=== PATIENT | female | born 1965 | race Caucasian/White ===

== ENCOUNTER 2022-09-08 08:18 | Emergency (ER) | payer BC, SELFPAY ==
[2022-09-08 08:25] VITALS: BP 112/92; PULSE 80; RESP 16; TEMP 36.9; O2SAT 100
--- NOTE | 2022-09-08 08:56 | ED.URI ---
HPI - URI/Sore Throat General Chief Complaint: Upper Respiratory Infection Stated Complaint: SORE THROAT/CONGESITON/TIRED Time Seen by Provider: 09/08/22 08:56 Source: patient and RN notes reviewed Mode of arrival: ambulatory Limitations: no limitations History of Present Illness HPI Narrative: 57 y/o female presented for c/o fatigue, headache, body aches, sinus pressure/congestion, cough, fever/chills. Onset 4 days. Known exposure to influenza last week. Taking Advil and Sudafed. Denies sob, wheezing, n/v/d. MD elicited complaint: cough Related Data Home Medications Medication Instructions Recorded Confirmed levothyroxine 50 mcg tablet 50 mcg PO DAILY 09/08/22 09/08/22 pantoprazole 40 mg tablet,delayed 40 mg PO DAILY 09/08/22 09/08/22 release progesterone micronized 100 mg 100 mg PO DAILY 09/08/22 09/08/22 capsule valacyclovir 500 mg tablet 500 mg PO DIRECTED 09/08/22 09/08/22 Allergies Allergy/AdvReac Type Severity Reaction Status Date / Time ciprofloxacin Allergy Mild Rash Verified 09/08/22 08:26 Sulfa (Sulfonamide Allergy Mild Hives Verified 09/08/22 08:26 Antibiotics) azithromycin Allergy Unknown Hives Verified 09/08/22 08:26 CIPROFLOXACIN HCL Allergy Mild Rash Uncoded 09/08/22 08:26 Review of Systems Review of Systems: ROS per HPI Exam Narrative: GENERAL: Ill-appearing, nontoxic EYES: PERRLA, conjunctivae clear ENT: Mucous membranes moist. TMs pearly hoang with dull light reflex bilaterally; no tragal tenderness. Oropharynx erythematous without lesions or exudate, no drooling, no hoarseness, no trismus, uvula midline. CHEST: Clear to auscultation, breath sounds equal. No wheezing, rhonchi, rales, or stridor. No respiratory distress, speaks in full sentences. HEART: Regular rate and rhythm. No murmur heard. SKIN: Warm, dry, no rash. NEURO: Alert and oriented x3. PSYCH: Normal mood and affect Course Course Emergency Course: Patient is aware of diagnosis, understands and agrees to treatment plan. Anticipatory guidance given. Patient agrees to follow-up as directed and is aware of reasons to seek care at the emergency department. Portions of this record may have been created with voice recognition software Level of Care: Express Care Visit Vital Signs Vital signs: Vital Signs Temperature 98.4 F 09/08/22 08:25 Pulse Rate 80 09/08/22 08:25 Respiratory Rate 16 09/08/22 08:25 Blood Pressure 112/92 H 09/08/22 08:25 Pulse Oximetry 100 09/08/22 08:25 Oxygen Delivery Room Air 09/08/22 08:25 Temperature 98.4 F 09/08/22 08:25 Pulse Rate 80 09/08/22 08:25 Respiratory Rate 16 09/08/22 08:25 Blood Pressure 112/92 H 09/08/22 08:25 Pulse Oximetry 100 09/08/22 08:25 Oxygen Delivery Room Air 09/08/22 08:25 reviewed MDM - URI/Sore Throat MDM Narrative Medical decision making narrative: Influenza positive. Results reviewed with patient. Advised supportive measures and signs/symptoms to go to the ER. Pt is appropriate for outpt treatment and f/u. Differential Diagnosis Differential diagnosis: Likely upper respiratory infection, sinusitis and viral infection Lab Data Labs: Influenza A Screen Positive Reference Range: Negative Influenza B Screen Negative Reference Range: Negative Discharge Plan Discharge Clinical Impression: Influenza Patient Disposition: Home, Self-Care Condition: Stable Instructions: Influenza (ED) Additional Instructions: Influenza positive You should avoid crowds until you are fever free for 24 hours without the use of fever reducing medications, or the symptoms are improved Rest. Drink plenty of fluids. Tylenol 1000mg every 8 hours as needed for pain/fever Recommend Flonase spray and Zyrtec (or Claritin/Katina) for sinus pressure/congestion over the counter Cough syrup may cause drowsin
== END 2022-09-08 09:32 | disposition home or self-care (01) ==
PROVIDERS: Emergency Provider Nurse Practitioner Family
DX: J10.1 Influenza due to other identified influenza virus with other respiratory manifestations (principal)
CPT/HCPCS: 87804; 99203; G0463

== ENCOUNTER 2023-03-30 14:56 | Emergency (ER) | payer BC, SELFPAY ==
[2023-03-30 15:07] VITALS: BP 110/75; PULSE 72; RESP 18; TEMP 36.7; O2SAT 100
--- NOTE | 2023-03-30 15:27 | ED.URI ---
HPI - URI/Sore Throat General Chief Complaint: Upper Respiratory Infection Stated Complaint: sorethroat Time Seen by Provider: 03/30/23 15:13 Source: patient and RN notes reviewed Mode of arrival: ambulatory Limitations: no limitations History of Present Illness HPI Narrative: Patient presents today complaining of 2 day history of sore throat, body aches, congestion, rhinorrhea, fatigue. Denies fever or cough. Currently rates her sore throat 5/10 and has been taking ibuprofen and Sudafed with mild relief. Denies known sick contacts. Related Data Home Medications Medication Instructions Recorded Confirmed levothyroxine 50 mcg tablet 50 mcg PO DAILY 09/08/22 03/30/23 pantoprazole 40 mg tablet,delayed 40 mg PO DAILY 09/08/22 03/30/23 release progesterone micronized 100 mg 100 mg PO DAILY 09/08/22 03/30/23 capsule Allergies Allergy/AdvReac Type Severity Reaction Status Date / Time azithromycin AdvReac Mild Hives Verified 03/30/23 15:01 ciprofloxacin AdvReac Mild Rash Verified 03/30/23 15:01 Sulfa (Sulfonamide AdvReac Mild Hives Verified 03/30/23 15:01 Antibiotics) Review of Systems Review of Systems: CONSTITUTIONAL: Denies fever, chills, or sweats.+ fatigue, body aches EYES: Denies visual changes, redness, or discharge. ENT: Denies otalgia.+ congestion, rhinorrhea, sore throat CARDIOVASCULAR: Denies chest pain, palpitations, or edema. RESPIRATORY: Denies cough or dyspnea. GASTROINTESTINAL: Denies abdominal pain, nausea, vomiting, or diarrhea. GENITOURINARY: Denies dysuria or hematuria. SKIN: Denies rash, itching, or wounds. MUSCULOSKELETAL: Denies back pain, joint pain, or myalgia. NEUROLOGIC: Denies headache, numbness, tingling, or weakness. PSYCH: Denies depression or anxiety. [facility] Past Medical History Medical History (Updated 03/30/23 @ 15:30 by Chanel Dillard, DRUM TENDER, ) GERD (gastroesophageal reflux disease) Comments At time of signature, I have reviewed and agree with nursing past medical, surgical, social and family history unless otherwise noted. Please see nursing chart for further information. There is no relevant family history pertinent to the presenting complaint Exam Narrative: GENERAL: Well-appearing, well-nourished, and in no acute distress. HEAD: Normocephalic, atraumatic. EYES: EOMI. No redness or drainage. Conjunctivae normal. ENT: Mucous membranes pink and moist. Nares mildly congested. No rhinorrhea. TMs normal bilaterally. Throat normal. Uvula midline. NECK: Normal AROM. Supple. No lymphadenopathy. CHEST: No respiratory distress. Clear to auscultation. HEART: Regular rate and rhythm. No murmur appreciated. Normal peripheral pulses. EXTREMITIES: Normal range of motion. No edema. SKIN: Warm, dry, no rash. Capillary refill normal. Normal skin turgor. NEURO: No focal deficits. Alert and oriented x3. Gait steady. PSYCH: Normal affect. No signs of depression or anxiety. Course Course Level of Care: Express Care Visit Vital Signs Vital signs: Vital Signs Temperature 98.1 F 03/30/23 15:07 Pulse Rate 72 03/30/23 15:07 Respiratory Rate 18 03/30/23 15:07 Blood Pressure 110/75 03/30/23 15:07 Pulse Oximetry 100 03/30/23 15:07 Oxygen Delivery Room Air 03/30/23 15:07 Temperature 98.1 F 03/30/23 15:07 Pulse Rate 72 03/30/23 15:07 Respiratory Rate 18 03/30/23 15:07 Blood Pressure 110/75 03/30/23 15:07 Pulse Oximetry 100 03/30/23 15:07 Oxygen Delivery Room Air 03/30/23 15:07 Reviewed MDM - URI/Sore Throat MDM Narrative Medical decision making narrative: Rapid strep negative. Culture pending. No prescription medications indicated at this time. Symptoms likely viral in etiology. Anticipatory guidance given. Differential Diagnosis Differential diagnosis: Likely upper respiratory infection, viral infection, pharyngitis and other (Strep throat) Lab Data Attestation: I reviewed the patient's lab results. Lab
== END 2023-03-30 15:29 | disposition home or self-care (01) ==
PROVIDERS: Emergency Provider Nurse Practitioner
DX: J06.9 Acute upper respiratory infection, unspecified (principal); K21.9 Gastro-esophageal reflux disease without esophagitis
CPT/HCPCS: 87081; 87880; 99213; G0463

== ENCOUNTER 2024-05-28 11:37 | Emergency (ER) | payer BC, SELFPAY ==
--- NOTE | 2024-05-28 11:45 | ED.URI ---
HPI - URI/Sore Throat General Chief Complaint: Upper Respiratory Infection Stated Complaint: Covid Time Seen by Provider: 05/28/24 12:05 Source: patient and RN notes reviewed Mode of arrival: ambulatory Limitations: no limitations History of Present Illness HPI Narrative: 58-year-old female presents with concern for COVID. Reports she had a positive COVID test at home yesterday. Her symptoms started Tuesday. It got worse yesterday. She reports she has taken Sudafed and ibuprofen MD elicited complaint: cough and sore throat Related Data Home Medications Medication Instructions Recorded Confirmed levothyroxine 50 mcg tablet 50 mcg PO DAILY 09/08/22 05/28/24 progesterone micronized 100 mg 100 mg PO DAILY 09/08/22 05/28/24 capsule estradiol 0.5 mg tablet 0.5 mg PO DAILY 05/28/24 05/28/24 Allergies Allergy/AdvReac Type Severity Reaction Status Date / Time azithromycin AdvReac Mild Hives Verified 05/28/24 11:55 ciprofloxacin AdvReac Mild Rash Verified 05/28/24 11:55 Sulfa (Sulfonamide AdvReac Mild Hives Verified 05/28/24 11:55 Antibiotics) Review of Systems Review of Systems: CONSTITUTIONAL: Reports malaise. Denies chills, sweats, or fever. EYES: Denies visual changes, redness, or discharge. ENT: Reports rhinorrhea, congestion, and sore throat. CARDIOVASCULAR: Denies chest pain, palpitations, or edema. RESPIRATORY: Reports cough. Denies dyspnea. GASTROINTESTINAL: Denies abdominal pain, nausea, vomiting, diarrhea SKIN: Denies rash or itching. MUSCULOSKELETAL: Reports myalgia. NEUROLOGIC: Reports headache. All systems reviewed & are unremarkable except as noted in HPI and below PMFSH Past Medical History Medical History (Updated 05/28/24 @ 12:10 by Shobha Caruso NP) GERD (gastroesophageal reflux disease) Comments At time of signature, agree with nursing past medical, surgical, social and family history. There is no relevant family history pertinent to the presenting complaint Exam Narrative: GENERAL: Well-appearing, well-nourished, and in no acute distress. HEAD: Normocephalic EYES: PERRLA, conjunctivae clear ENT: Nares clear, turbinates edematous and erythematous, clear discharge. Mucous membranes moist. TM pearly hoang with dull light reflex bilaterally; no tragal tenderness. Oropharynx not erythematous without lesions. Tonsils not enlarged and without exudate, no drooling, no hoarseness, no trismus, uvula midline. NECK: Supple. No lymphadenopathy CHEST: Clear to auscultation, breath sounds equal. No wheezing, rhonchi, rales, or stridor. No respiratory distress, speaks in full sentences. HEART: Regular rate and rhythm. No murmur heard. SKIN: Warm, dry, no rash. NEURO: Alert and oriented x3. PSYCH: Normal mood and affect Course Course Emergency Course: Patient is aware of diagnosis, understands and agrees to treatment plan. Anticipatory guidance given. Patient agrees to follow-up as directed and is aware of reasons to seek care at the emergency department. Portions of this record may have been created with voice recognition software Level of Care: Express Care Visit Vital Signs Vital signs: Reviewed. MDM - URI/Sore Throat MDM Narrative Medical decision making narrative: Differential diagnosis considered: Schultz virus, strep pharyngitis, allergic rhinitis, upper respiratory tract infection, sinusitis, rhinosinusitis, nasopharyngitis. viral pharyngitis, otitis media, otitis externa, pneumonia, bronchitis, viral cough syndrome, viral syndrome, and influenza. Exam findings show no acute concerns or changes; patient is non-toxic appearing and is in no distress. Patient is appropriate for outpatient treatment and follow-up. Lab Data Attestation: I reviewed the patient's lab results. Critical Care Time Critical Care Time Critical Care Time: No Discharge Plan Discharge Clinical Impression: COVID Patient Disposition: Home, Self-Care Condition: Stable Instructions: How to
[2024-05-28 11:52] VITALS: BP 106/87; PULSE 86; RESP 20; TEMP 36.4; O2SAT 99
[2024-05-28 11:56] VITALS: BP 106/87; PULSE 86; RESP 20; TEMP 36.4; O2SAT 99
== END 2024-05-28 12:17 | disposition home or self-care (01) ==
PROVIDERS: Emergency Provider Nurse Practitioner
DX: U07.1 COVID-19 (principal); K21.9 Gastro-esophageal reflux disease without esophagitis
CPT/HCPCS: 99213; G0463

== ENCOUNTER 2024-09-10 13:42 | Emergency (ER) | payer BC, SELFPAY ==
--- NOTE | ~2024-09-10 | XR_ITS ---
EXAMINATION: XR chest 2V Exam Date/Time: 09/10/2024 14:06 FELT CEMENTER HISTORY: cough, chest congestion, sob on exertion Comparison: None. RESULT: Lines, tubes, and devices: Cholecystectomy clips. Lungs and pleura: Clear. Cardiomediastinal silhouette: Unremarkable. Other: No acute osseous or upper abdominal finding. IMPRESSION: No acute cardiopulmonary process. Reviewed, dictated and finalized at location K. CEMENTER
--- NOTE | 2024-09-10 13:43 | ED.URI ---
HPI - URI/Sore Throat General Chief Complaint: Upper Respiratory Infection Stated Complaint: Upper Respiratory Symptoms Time Seen by Provider: 09/10/24 13:43 Source: patient Mode of arrival: ambulatory Limitations: no limitations History of Present Illness HPI Narrative: Marisol is a 59-year-old female patient presenting to the clinic today with complaints of cough, chest congestion, and shortness of breath on exertion. She reports she has had symptoms for approximately 5 days. Had COVID back in May. Denies any fevers, chills, or body aches. MD elicited complaint: cough, nasal congestion and other (Chest congestion, shortness of breath) Related Data Home Medications Medication Instructions Recorded Confirmed levothyroxine 50 mcg tablet 50 mcg PO DAILY 09/08/22 09/10/24 progesterone micronized 100 mg 100 mg PO DAILY 09/08/22 09/10/24 capsule estradiol 1 mg tablet 1 mg PO DAILY 09/10/24 09/10/24 Allergies Allergy/AdvReac Type Severity Reaction Status Date / Time azithromycin AdvReac Mild Hives Verified 09/10/24 14:09 ciprofloxacin AdvReac Mild Rash Verified 09/10/24 14:09 Sulfa (Sulfonamide AdvReac Mild Hives Verified 09/10/24 14:09 Antibiotics) Review of Systems Review of Systems: Pertinent positives per HPI. Patient denies any fever, chills, rash, headache, visual changes, dizziness, chest pain, palpitations, nausea, vomiting, diarrhea, constipation, abdominal pain, or any urinary issues. [facility] Past Medical History Medical History (Updated 09/10/24 @ 14:27 by Michael Whitt APRN) GERD (gastroesophageal reflux disease) Comments At the time of my signature, I reviewed and agree with the nursing past medical, surgical, social, and family history. There is no relevant family history pertinent to the patient complaint. Exam Narrative: General: Well-developed, well nourished, in no apparent distress Head: Normocephalic, atraumatic Eyes: Pupils equally round and reactive to light bilaterally, EOM intact, sclera and conjunctive clear, no discharge, lids normal Ears: TMs intact and clear, ear canals clear, no drainage, grossly hearing normal. Nose: Nares patent, clear nasal discharge, no inflammation, no sinus tenderness. Mouth: Oral pharynx without lesions or masses, good dentition, MMM. Postnasal drip Neck: Supple, trachea midline, no enlargement of anterior or posterior cervical nodes, no thyroid masses or goiter palpable. Cardio: Regular rate and rhythm, s1 and s2 normal, no murmur appreciated. Resp: Clear to auscultation bilaterally, no rhonchi, rales, wheezing or rubs Course Course Emergency Course: Portions of this record may have been created with voice recognition software. Level of Care: Express Care Visit Vital Signs Vital signs: Vital Signs Temperature 36.6 C 09/10/24 14:00 Pulse Rate 90 09/10/24 14:00 Respiratory Rate 15 09/10/24 14:00 Blood Pressure 116/87 09/10/24 14:00 Pulse Oximetry 99 09/10/24 14:00 Oxygen Delivery Room Air 09/10/24 14:00 Temperature 36.6 C 09/10/24 14:00 Pulse Rate 90 09/10/24 14:00 Respiratory Rate 15 09/10/24 14:00 Blood Pressure 116/87 09/10/24 14:00 Pulse Oximetry 99 09/10/24 14:00 Oxygen Delivery Room Air 09/10/24 14:00 Vital signs reviewed MDM - URI/Sore Throat MDM Narrative Medical decision making narrative: At the time of visit patient is resting comfortably on the exam table. Patient appears to be nontoxic. Labs: COVID and influenza testing was negative in the clinic today. Diagnostics: Chest x-ray was negative for any acute cardiopulmonary process. Plan: I suspect patient has URI with cough and congestion. Prescription for albuterol inhaler and prednisone was sent to the pharmacy. Supportive measures were discussed with the patient and they voiced understanding discharge instructions and agrees to treatment plan. Return precautions reviewed Differential Diagnosis Differential diagnosis: Likely upper respiratory infection, otitis media, sinusitis, viral infection, bronchitis, influenza, pharyngitis and other (COVID) Imaging Data Radiologist's impression: ITS Impressions Chest X-Ray 09/10/24 14:22 IMPRESSION: No acute cardiopulmonary process. Discharge Plan Discharge Clinical Impression: Upper respiratory infection with cough and congestion Patient Disposition: Home, Self-Care Condition: Stable Instructions: Antibiotic Form, Upper Respiratory Infection (ED) Additional Instructions: COVID and influenza testing was negative in the clinic today. Chest x-rays negative for any acute cardiopulmonary process. Take prescription medications only as prescribed-albuterol inhaler and prednisone Increase fluids and stay well hydrated Tylenol/motrin for pain/fever Flonase and OTC antihistamines as directed Vicks vapor rub to open sinuses Sinus rinses for congestion Cepacol spray, cough drops, throat lozenges, warm tea with honey/lemon, gargle salt water to soothe throat BRAT diet for diarrhea Clear liquids x 24 hours then advance as tolerated for nausea/vomiting Go to the ED if you develop a worsening in your condition- high fever not controlled by Tylenol or Motrin, dehydration, weakness, lethargy, shortness of breath, or chest pain. Follow up with your PCP in 3-5 days if symptoms persist. Prescriptions: New prednisone 20 mg tablet 40 mg PO DAILY 5 Days Qty: 10 0RF albuterol sulfate 90 mcg/actuation HFA aerosol inhaler 2 puff inhalation Q4-6H PRN (Reason: shortness of breath or wheezing) 30 Days Qty: 8.5 0RF No Action levothyroxine 50 mcg tablet 50 mcg PO DAILY progesterone micronized 100 mg capsule 100 mg PO DAILY estradiol 1 mg tablet 1 mg PO DAILY Follow-up/Referrals: UNKNOWN,DOCTOR [Non-Staff] - Time of Disposition: 14:27 Quality NIHSS Nursing Documentation ED NIHSS nursing documentation: reviewed/agree
[2024-09-10 14:00] VITALS: BP 116/87; PULSE 90; RESP 15; TEMP 36.6; O2SAT 99
[2024-09-10 14:37] LABS: EDCOVIDSCREEN Negative (Negative); EDINFLUASCREEN Negative (Negative); EDINFLUBSCREEN Negative (Negative)
== END 2024-09-10 14:30 | disposition home or self-care (01) ==
PROVIDERS: Emergency Provider Nurse Practitioner Family
DX: J06.9 Acute upper respiratory infection, unspecified (principal); Z20.822 Contact with and (suspected) exposure to COVID-19; K21.9 Gastro-esophageal reflux disease without esophagitis; Z86.16 Personal history of COVID-19
CPT/HCPCS: 71046; 87426; 87804; 99213; G0463

== ENCOUNTER 2024-10-23 08:39 | Emergency (ER) | payer BC, SELFPAY ==
--- NOTE | ~2024-10-23 | US_ITS ---
EXAMINATION: US pelvic complete w TV DATE: 10/23/2024 11:43 INDICATION: Lower abdominal pain TECHNIQUE: Multiple transabdominal and endovaginal sonographic images of the pelvis were obtained. COMPARISON: None. FINDINGS: The uterus measures 6.0 x 3.7 x 4.5 cm. The endometrial complex measures 2-3 mm in thickness. The ri ght ovary measures cm. The left bilateral ovaries are not visualized.. There is no free fluid in the pelvis. IMPRESSION: 1. Normal pelvic ultrasound. Reviewed, dictated and finalized at location A. T PROTECTION SUPERINTENDENT
--- NOTE | ~2024-10-23 | CT_ITS ---
EXAMINATION: CT abdomen pelvis w con DATE: 10/23/2024 09:14 INDICATION: Generalized abdominal pain. TECHNIQUE: Computed tomography (CT) of the abdomen and pelvis was performed with 100 mL Omnipaque 350 intravenous contrast. Automated exposure control and iterative reconstruction technique were employe d. The dose-length product was 1039.06 mGy-cm. COMPARISON: None. FINDINGS: The visualized portions of the lung bases demonstrate mild atelectasis. No pleural effusion . The heart size is normal. No pericardial effusion. The liver and spleen are normal. There are calixto es of cholecystectomy. The pancreas, adrenal glands, and kidneys are normal. There is diverticulosis of the colon without evidence of diverticulitis. The appendix is normal. There are no dilated loops o f bowel. The ovarian veins are enlarged, consistent with pelvic venous insufficiency. There are no pa thologically enlarged lymph nodes. There is no free intraperitoneal fluid. There is moderate thoracic spondylosis and severe lumbar spondylosis IMPRESSION: 1. Pelvic venous insufficiency. Reviewed, dictated and finalized at location B. LLOGRAPHIC TECHNICIAN
[2024-10-23 08:47] VITALS: BP 156/111; PULSE 71; RESP 20; TEMP 37.1; O2SAT 100
[2024-10-23 08:59] LABS: Basophils Absolute Auto 0.1 K/mm3 (0.0-0.1); Basophils Percent Auto 0.7 % (0.2-1.2); Eosinophils Absolute Auto 0.4 K/mm3 (0-0.3); Eosinophils Percent Auto 6.1 % (0-4.4); Hematocrit 44.7 % (37.0-47.0); Hemoglobin 15.4 g/dL (12.0-15.0); Immature Granulocyte Absolute 0.01 K/mm3 (0.00-0.031); Immature Granulocyte Percent A 0.1 % (0-0.5); Lymphocytes Absolute Auto 2.06 K/mm3 (0.9-3.2); Lymphocytes Percent Auto 29.9 % (18.3-44.2); Mean Corpuscular HGB Conc 34.5 g/dl (32-36); Mean Corpuscular Hemoglobin 32.1 pg (26-34); Mean Corpuscular Volume 93.1 fl (80-100); Mean Platelet Volume 9.3 fl (7.4-10.4); Monocytes Absolute Auto 0.8 K/mm3 (0.1-0.6); Monocytes Percent Auto 11.8 % (2.6-8.5); Neutrophils Absolute Auto 3.5 K/mm3 (1.3-6.7); Neutrophils Percent Auto 51.4 % (45.5-73.1); Platelet Count Result 231 k/mm3 (150-375); White Blood Count 6.9 K/mm3 (4.5-10.0)
[2024-10-23 09:08] LABS: Alanine Aminotransferase 29 U/L (6-35); Albumin Level 4.5 g/dL (3.5-5.1); Alkaline Phosphatase 70 U/L (38-126); Anion Gap 9 mmol/L (4-12); Aspartate Amino Transferase 29 U/L (14-36); Bilirubin,Total 0.8 mg/dL (0.2-1.3); Blood Urea Nitrogen 12 mg/dL (7-17); Calcium 9.2 mg/dL (8.4-10.2); Carbon Dioxide 24 mmol/L (22-30); Chloride 106 mmol/L (98-107); Estimated CRCL calculation 76 ml/min; Estimated Glomerular Filt Rate > 60; Glucose 92 mg/dL (65-110); Lipase 64 U/L (23-300); Potassium 4.2 mmol/L (3.4-5.0); Sodium 139 mmol/L (137-145)
[2024-10-23 09:11] LABS: Estimated CRCL calculation 72 ml/min; Estimated Glomerular Filt Rate > 60
[2024-10-23 09:19] LABS: Lactic Acid Reflex 1.5 mmol/L (0.7-2.0)
[2024-10-23 09:32] LABS: Add Urine Microscopic? NO; Appearance Urine Clear (Clear); Bilirubin Urine Negative (Negative); Blood Urine Negative (Negative); Color Urine Yellow (Yellow); Glucose Urine UA Negative (Negative); Ketones Urine Negative (Negative); Leukocyte Esterase Ur Negative LEU/UL (Negative); Nitrate Urine Negative (Negative); Protein Urine Negative (Negative); Urobilinogen Urine 0.2 mg/dL (<2.0); pH Urine 5.5 (5.0-9.0)
--- NOTE | 2024-10-23 09:44 | ED.ABDPAIN ---
HPI - Abdominal Pain General Chief Complaint: Abdominal Pain Stated Complaint: abd pain Time Seen by Provider: 10/23/24 09:02 History of Present Illness HPI narrative: 59-year-old female with history of GERD presents to the emergency department with at bedside for abdominal pain. Patient states she has had intermittent abdominal pain to the right lower quadrant since 10/12/2024. Over the past few days the abdominal pain is worsened so she contacted her OBGYN who is planning to schedule an outpatient ultrasound was advised to come to the ED if symptoms worsen in the meantime. Patient presents today because this morning she woke up with significant abdominal pain that radiated from her right lower quadrant across her abdomen and into her back. States pain is worse with movement of her abdomen or when she goes over bumps in the road. She has never had pain like this before. Reports a history of lap choly in 2011, otherwise no abdominal surgeries. Denies dysuria, hematuria, N/V/D, fever. Last bowel movement was this morning and normal. Related Data Home Medications ?Medication ?Instructions ?Recorded ?Confirmed ?Last Taken ?Type levothyroxine 50 mcg tablet 50 mcg PO DAILY 09/08/22 09/10/24 Unknown History progesterone micronized 100 mg 100 mg PO DAILY 09/08/22 09/10/24 Unknown History capsule estradiol 1 mg tablet 1 mg PO DAILY 09/10/24 09/10/24 Unknown History Allergies Allergy/AdvReac Type Severity Reaction Status Date / Time azithromycin AdvReac Mild Hives Verified 10/23/24 08:40 ciprofloxacin AdvReac Mild Rash Verified 10/23/24 08:40 Sulfa (Sulfonamide AdvReac Mild Hives Verified 10/23/24 08:40 Antibiotics) Review of Systems Review of Systems: All systems reviewed & are unremarkable except as noted in HPI and below PMFSH Past Medical History Medical History GERD (gastroesophageal reflux disease) Exam Narrative: GENERAL: Well-appearing, well-nourished, and in no acute distress. HEAD: Normocephalic, atraumatic. EYES: PERRLA and EOMI. ENT: Nares clear, no rhinorrhea or epistaxis. Mucous membranes moist. NECK: Supple. CHEST: Clear to auscultation. No respiratory distress. HEART: Regular rate and rhythm. No murmur heard. Normal peripheral pulses. ABDOMEN: Soft, nontender, nondistended, normal active bowel sounds. EXTREMITIES: Normal range of motion. No edema. SKIN: Warm, dry, no rash. NEURO: No focal deficits. Alert and oriented x3 Course Vital Signs Vital signs: Vital Signs Temperature 98.8 F 10/23/24 08:47 Pulse Rate 71 10/23/24 08:47 Respiratory Rate 20 10/23/24 08:47 Blood Pressure 156/111 H 10/23/24 08:47 Pulse Oximetry 100 10/23/24 08:47 Oxygen Delivery Room Air 10/23/24 08:47 Temperature 98.8 F 10/23/24 08:47 Pulse Rate 86 10/23/24 09:58 Respiratory Rate 20 10/23/24 09:58 Blood Pressure 109/83 10/23/24 09:58 Pulse Oximetry 98 10/23/24 09:58 Oxygen Delivery Room Air 10/23/24 08:47 MDM - Abdominal Pain MDM Narrative Medical decision making narrative: 59-year-old female presents to the emergency department for abdominal pain since 10/12/2024, progressively worsening over the past few days. Triage vitals elevated blood pressure 156/111 otherwise unremarkable. Exam is significant for the above. Lab work shows no leukocytosis, mild he hemoconcentration with a hemoglobin of 15.4, likely dehydration, fluids provided. Chemistries are unremarkable. UA is unremarkable. Lactic normal. Lipase normal. CT abdomen pelvis shows pelvic venous insufficiency. Pelvic ultrasound is unremarkable. Patient received morphine with improvement and updated on workup. Suspect pain is secondary to pelvic venous insufficiency. Discussed supportive care with Tylenol, ibuprofen and [place] for breakthrough pain as well as follow-up with OBGYN. Her OBGYN is with [facility]. Return precautions discussed. She is agreeable with the plan verbalized understanding. Discharged in stable condition. Lab Data 10/23/24 08:52 10/23/24 09:10 Labs: Lab Results 10/23/24 10/23/24 10/23/24 Range/Units 08:52 09:10 09:21 WBC 6.9 (4.5-10.0) K/mm3 RBC 4.80 (4.2-5.4) M/mm3 Hgb 15.4 H (12.0-15.0) g/dL Hct 44.7 (37.0-47.0) % MCV 93.1 (80-100) fl MCH 32.1 (26-34) pg MCHC 34.5 (32-36) g/dl RDW 12.0 (11.5-14.5) % Plt Count 231 (150-375) k/mm3 MPV 9.3 (7.4-10.4) fl Immature Gran % (Auto) 0.1 (0-0.5) % Neut % (Auto) 51.4 (45.5-73.1) % Lymph % (Auto) 29.9 (18.3-44.2) % [place] % (Auto) 11.8 H (2.6-8.5) % Eos % (Auto) 6.1 H (0-4.4) % Baso % (Auto) 0.7 (0.2-1.2) % Lymph # (Auto) 2.06 (0.9-3.2) K/mm3 [place] # (Auto) 0.8 H (0.1-0.6) K/mm3 Eos # (Auto) 0.4 H (0-0.3) K/mm3 Baso # (Auto) 0.1 (0.0-0.1) K/mm3 Abs Immat Gran (auto) 0.01 (0.00-0.031) K/mm3 Absolute Neuts (auto) 3.5 (1.3-6.7) K/mm3 Absolute Nucleated RBC 0.000 (0.0-0.012) K/mm3 Nucleated RBC % 0.0 (0.0-0.2) % Sodium 139 (137-145) mmol/L Potassium 4.2 (3.4-5.0) mmol/L Chloride 106 (98-107) mmol/L Carbon Dioxide 24 (22-30) mmol/L Anion Gap 9 (4-12) mmol/L BUN 12 (7-17) mg/dL Creatinine 0.84 0.90 (0.7-1.0) mg/dL Estim Creat Clear Calc 76 72 ml/min Estimated GFR > 60 > 60 (59 - ) Glucose 92 (65-110) mg/dL Lactic Acid 1.5 (0.7-2.0) mmol/L Calcium 9.2 (8.4-10.2) mg/dL Total Bilirubin 0.8 (0.2-1.3) mg/dL AST 29 (14-36) U/L ALT 29 (6-35) U/L Alkaline Phosphatase 70 (38-126) U/L Total Protein 8.0 (6.3-8.2) g/dL Albumin 4.5 (3.5-5.1) g/dL Lipase 64 (23-300) U/L Urine Color Yellow (Yellow) Urine Appearance Clear (Clear) Urine pH 5.5 (5.0-9.0) Ur Specific [place] 1.010 (1.001-1.035) Urine Protein Negative (Negative) mg/dL Urine Glucose (UA) Negative (Negative) mg/dL Urine Ketones Negative (Negative) mg/dL Ur Blood (Man) Negative (Negative) Urine Nitrate Negative (Negative) Urine Bilirubin Negative (Negative) Urine Urobilinogen 0.2 (<2.0) mg/dL Leukocyte Esterase Rfl Negative (Negative) TASHA/UL POC Urine HCG, Qual (Negative) 10/23/24 Range/Units 09:58 WBC (4.5-10.0) K/mm3 RBC (4.2-5.4) M/mm3 Hgb (12.0-15.0) g/dL Hct (37.0-47.0) % MCV (80-100) fl MCH (26-34) pg MCHC (32-36) g/dl RDW (11.5-14.5) % Plt Count (150-375) k/mm3 MPV (7.4-10.4) fl Immature Gran % (Auto) (0-0.5) % Neut % (Auto) (45.5-73.1) % Lymph % (Auto) (18.3-44.2) % [place] % (Auto) (2.6-8.5) % Eos % (Auto) (0-4.4) % Baso % (Auto) (0.2-1.2) % Lymph # (Auto) (0.9-3.2) K/mm3 [place] # (Auto) (0.1-0.6) K/mm3 Eos # (Auto) (0-0.3) K/mm3 Baso # (Auto) (0.0-0.1) K/mm3 Abs Immat Gran (auto) (0.00-0.031) K/mm3 Absolute Neuts (auto) (1.3-6.7) K/mm3 Absolute Nucleated RBC (0.0-0.012) K/mm3 Nucleated RBC % (0.0-0.2) % Sodium (137-145) mmol/L Potassium (3.4-5.0) mmol/L Chloride (98-107) mmol/L Carbon Dioxide (22-30) mmol/L Anion Gap (4-12) mmol/L BUN (7-17) mg/dL Creatinine (0.7-1.0) mg/dL Estim Creat Clear Calc ml/min Estimated GFR (59 - ) Glucose (65-110) mg/dL Lactic Acid (0.7-2.0) mmol/L Calcium (8.4-10.2) mg/dL Total Bilirubin (0.2-1.3) mg/dL AST (14-36) U/L ALT (6-35) U/L Alkaline Phosphatase (38-126) U/L Total Protein (6.3-8.2) g/dL Albumin (3.5-5.1) g/dL Lipase (23-300) U/L Urine Color (Yellow) Urine Appearance (Clear) Urine pH (5.0-9.0) Ur Specific [place] (1.001-1.035) Urine Protein (Negative) mg/dL Urine Glucose (UA) (Negative) mg/dL Urine Ketones (Negative) mg/dL Ur Blood (Man) (Negative) Urine Nitrate (Negative) Urine Bilirubin (Negative) Urine Urobilinogen (<2.0) mg/dL Leukocyte Esterase Rfl (Negative) TASHA/UL POC Urine HCG, Qual Negative (Negative) Imaging Data Radiologist's impression: ITS Impressions Abdomen/Pelvis CT 10/23/24 09:14 IMPRESSION: 1. Pelvic venous insufficiency. Pelvic/Transvag US 10/23/24 11:48 IMPRESSION: 1. Normal pelvic ultrasound. Discharge Plan Discharge Clinical Impression: Pelvic congestion syndrome Patient Disposition: Home, Self-Care Condition: Stable Instructions: Antibiotic Form, Abdominal Pain (ED) Additional Instructions: Your evaluated in the emergency department for abdominal pain. Your lab work and pelvic ultrasound were reassuring. The CT of your pelvis shows pelvic venous insufficiency which is similar to varicose veins within her pelvis 2nd cause pain. I suspect this is the source of your symptoms. Please take Tylenol and ibuprofen as needed for pain and [place] for breakthrough pain. Follow-up with your OBGYN. Return to the emergency department he develops significantly worsening pain, fever, your unable to tolerate food or fluids, or other concerning symptoms. Patient Language: [place] Prescriptions: New ibuprofen 600 mg tablet 600 mg PO Q6H PRN (Reason: pain) Qty: 14 0RF acetaminophen 500 mg capsule 500 mg PO Q6H PRN (Reason: pain) Qty: 14 0RF hydrocodone-acetaminophen 5-325 mg tablet 1 tablet PO Q6H PRN (Reason: pain) Qty: 14 0RF No Action levothyroxine 50 mcg tablet 50 mcg PO DAILY progesterone micronized 100 mg capsule 100 mg PO DAILY estradiol 1 mg tablet 1 mg PO DAILY prednisone 20 mg tablet 40 mg PO DAILY 5 Days Qty: 10 0RF albuterol sulfate 90 mcg/actuation HFA aerosol inhaler 2 puff inhalation Q4-6H PRN (Reason: shortness of breath or wheezing) 30 Days Qty: 8.5 0RF Follow-up/Referrals: UNKNOWN,DOCTOR [Primary Care Provider] -
[2024-10-23] MEDS: MORPHINE SULFATE (*CRX) 4 MG/ML INJ IV PUSH (09:54)
[2024-10-23] MEDS: SODIUM CHLORIDE 0.9% IV 1,000 ML 999 ML IV CONT (09:55)
[2024-10-23 09:58] VITALS: BP 109/83; PULSE 86; RESP 20; O2SAT 98
[2024-10-23 10:00] LABS: BEDSIDEPREGUCG Negative (Negative)
[2024-10-23 12:35] VITALS: BP 116/88; PULSE 70; RESP 16; O2SAT 99
--- NOTE | 2024-10-23 12:58 | PC.NURSE ---
Per pt. request, CT called for disc to be made of CT and ultrasound imaging.
== END 2024-10-23 13:28 | disposition home or self-care (01) ==
PROVIDERS: Emergency Medicine; Emergency Provider Physician Assistant
DX: K31.89 Other diseases of stomach and duodenum (principal); K21.9 Gastro-esophageal reflux disease without esophagitis
CPT/HCPCS: 36415; 74177; 76830; 76856; 80053; 81003; 81025; 83605; 83690; 85025; 96361; 96374; 99284; J2270; J7030; Q9967